=== PATIENT | female | born 1965 | race Caucasian/White ===

== ENCOUNTER → 2016-10-30 | Outpatient (CLI) | payer OTHER | LOC: CIMAGING 09:12 | PROVIDERS: ATTEND Family Medicine | DX: K76.0 Fatty (change of) liver, not elsewhere classified (principal); R74.8 Abnormal levels of other serum enzymes | CPT/HCPCS: 76705-PO ==

== ENCOUNTER 2016-11-29 17:58 | Emergency (ER) | payer OTHER ==
[2016-11-29 18:06] VITALS: RESP 16; TEMP 97.9
--- NOTE | 2016-11-29 18:37 | UCPHY ---
H & P Time Seen by Provider: 11/29/16 18:16 Patient Type: New HPI/ROS: CHIEF COMPLAINT: Right arm numbness and pain HISTORY OF PRESENT ILLNESS: 51-year-old female with a history of alcoholism presents with right arm numbness and pain. Onset of right arm numbness 6-8 weeks ago. The numbness originally was only in the mornings, but since then has progressed and is now present all day long. The numbness involves her entire arm and hand. Associated with generalized right arm pain, especially at night. No neck pain or injury. Over the last week, she has developed numbness in her left hand. REVIEW OF SYSTEMS: Constitutional: No fever, no chills Eyes: No visual changes ENT: No sore throat Respiratory: No cough, no shortness of breath Cardiac: No chest pain Gastrointestinal: No nausea, no vomiting, no abdominal pain Genitourinary: no dysuria Musculoskeletal: No leg pain or swelling Skin: No rash Neurological: No headache, no weakness Psychiatric: No anxiety Past Medical/Surgical History: Alcoholism Hypertension Smoking Status: Current every day smoker Physical Exam: Alert and oriented x3, no acute distress. Neck: Normal inspection, no midline tenderness, range of motion without pain Extremities: right upper extremity-normal inspection, no tenderness, no pain with range of motion; left upper extremity-normal inspection, no tenderness, range of motion without pain Skin: intact Neuro: Motor 5/5 throughout, sensation intact to light touch and painful stimuli, subjective tingling sensation involving the entire arm and hand, without distinct anatomical distribution Vascular: Capillary refill brisk distally, radial pulse 2 +. Constitutional: Initial Vital Signs Temperature (C) 36.6 C 11/29/16 18:03 Heart Rate 75 11/29/16 18:03 Respiratory Rate 16 11/29/16 18:03 Blood Pressure 146/86 H 11/29/16 18:03 O2 Sat (%) 95 11/29/16 18:03 O2 Delivery Mode Room Air Allergies/Adverse Reactions: JOE Inhibitors Allergy (Verified 11/29/16 18:01) Home Medications: Medication Instructions Recorded LISINOPRIL/HYDROCHLOROTHIAZIDE 02/12/10 Gabapentin [Neurontin 300 MG (*)] 300 mg PO HS #30 cap 11/29/16 Sertraline HCl 11/29/16 Medical Decision Making ED Course/Re-evaluation: This patient presents with right arm paresthesias and pain, most likely secondary to cervical radiculopathy. There is no evidence of acute neurovascular compromise. She will increase ibuprofen to 600 mg 3 times daily. She also start taking gabapentin for neuropathic pain. She has a follow-up appointment tomorrow morning with Dr. Calle. Consider MRI imaging as outpatient. Differential Diagnosis: Includes though not limited to peripheral neuropathy, arterial compromise, DVT Departure - Departure Disposition: Home, Routine, Self-Care Clinical Impression: Cervical radiculopathy Condition: Good Instructions: Cervical Radiculopathy (ED) Additional Instructions: Ibuprofen 600 mg 3 times daily while the pain persists. Referrals: Jacquie Mack MD [Primary Care Provider] - As per Instructions Prescriptions: Gabapentin [Neurontin 300 MG (*)] 300 mg PO HS #30 cap - PQRS PQRS Measurement: N/A
[2016-11-29] MEDS ORDERED: GABAPENTIN 300 MG CAP PO ONE (18:43)
[2016-11-29 19:14] VITALS: BP 141/97; PULSE 70; O2SAT 91
== END 2016-11-29 19:06 | disposition home or self-care (01) ==
LOC: CED 17:58
DX: M54.12 Radiculopathy, cervical region (principal); F17.210 Nicotine dependence, cigarettes, uncomplicated; I10 Essential (primary) hypertension
CPT/HCPCS: 99203-PO; G0463-PO

== ENCOUNTER → 2016-11-30 | Outpatient (CLI) | payer OTHER | LOC: CIMAGING 10:13 | PROVIDERS: ATTEND Family Medicine | DX: M50.321 Other cervical disc degeneration at C4-C5 level (principal); M50.223 Other cervical disc displacement at C6-C7 level | CPT/HCPCS: 72052-PO; 72100-PO ==

== ENCOUNTER → 2017-01-07 | Outpatient (CLI) | payer OTHER | LOC: FIMAGING 06:51 | PROVIDERS: ATTEND Family Medicine | DX: M50.322 Other cervical disc degeneration at C5-C6 level (principal); M50.323 Other cervical disc degeneration at C6-C7 level; M99.71 Connective tissue and disc stenosis of intervertebral foramina of cervical region; R60.0 Localized edema ==

== ENCOUNTER → 2018-07-02 | Outpatient (CLI) | payer OTHER | LOC: CIMAGING 13:58 | PROVIDERS: ATTEND Family Medicine | DX: R07.81 Pleurodynia (principal); R91.8 Other nonspecific abnormal finding of lung field | CPT/HCPCS: 71101-PO ==